=== PATIENT | female | born 1975 | race Two or more races ===

== ENCOUNTER 2018-09-28 10:00 | Inpatient (IN) | payer OTHER ==
[~2018-09-28] VITALS: Ht 165.1 cm; Wt 65.8 kg
== END 2018-10-02 09:10 | disposition home or self-care (01) | DRG 621 ==
LOC: SURH 10:00 → SURG 09-30 06:15 → O/R 09-30 06:15 → SURG 09-30 18:35
PROVIDERS: ADMIT Specialist
PROC: 0W0F0ZZ Alteration of Abdominal Wall, Open Approach (ICD-10-PCS; principal; 2018-09-30 07:00)
PROC: 0H0V0ZZ Alteration of Bilateral Breast, Open Approach (ICD-10-PCS; 2018-09-30 07:00)
DX: E65 Localized adiposity (principal); N62 Hypertrophy of breast; Z98.84 Bariatric surgery status